=== PATIENT | male | born 1945 | race Caucasian/White ===

== ENCOUNTER 2016-07-04 08:59 | Emergency (ER) | payer OTHER, MEDICARE ==
[~2016-07-04] VITALS: Ht 167.6 cm; Wt 64.0 kg
[~2016-07-04 08:59] MED LIST: ASPIRIN 325MG325 MG PO; ASPIRIN 81MG TA81 MG PO; AZELASTINE137 MCG/Ac; BISOPROLOL 5MG T5 MG PO; CALCIUM ACETAT667 MG PO; CETIRIZINE HCL10 MG PO; DOCUSATE SODIU100 MG PO; DUONEB 3 MG/3 ML3 ML IH; FLUTICASONE 50M16 GM; IPRATROPIUM BROM3 M1 IH; LEADER NATUR1000 MCG PO; LEVAQUIN 750 M750 MG PO; LEVAQUIN500 MG PO; LEVOFLOXACIN 5500 MG PO; LISINOPRIL 20MG20 MG PO; LISINOPRIL40 MG PO; MIRALAX(PO17 GM/1 PA PO; MIRALAX17 GM/PACK PO; NICODERM C14 MG/24 H TD; NITROGLYCERIN0.4 M1 SL; PATANOL 5 ML5 ML OP; PLAVIX 75MG TAB75 MG PO; PREDNISONE 20MG20 MG PO; PROVENTIL0.09 MG/A1 IH; RANITIDINE HCL150 MG PO; REFRESH LIQUIGE15 ML OP; SERTRALINE 100100 MG PO; SIMVASTATIN5 MG PO; SPIRIVA HA1 PUFF/INH IH; SYMBICORT1 AE1 IH; TAMSULOSIN HYD0.4 MG PO; VIAGRA100 MG PO; VITAMIN B-121000 MCG PO; VITAMIN D3400 I1 PO; VITAMIN D400 IU PO; ZITHROMAX Z-PA250 M1 PO; ZYRTEC10 M3 PO; [UNRECOGNIZED DRUG - CODE] PO; [UNRECOGNIZED DRUG - OTHER] NS
[2016-07-04 09:51] LABS: LYMPH # 1.2 K/mm3 (0.7-4.5)
[2016-07-04 09:59] LABS: HEMOGLOBIN 13.8 g/dL (14.1-18.0)
[2016-07-04 10:18] LABS: BUN 14 mg/dL (7-18); GFR (ESTIMATED) 73 ML/MIN (>60)
--- NOTE | 2016-07-04 10:25 | Emergency Room Report ---
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 N Clinical Suspician of Infection? N Mental Status: 1 - Regular (Normal Baseline) Sepsis Risk:Low Sepsis Risk Have you (or family members/close friends) recently traveled outside the [place]? N If Yes, where/when: Have you had exposure to infectious disease within the past month? N TB? Other? Specify: Source patient, RN notes reviewed, family, RN/MD Exam Limitations no limitations Comment This is a 71-year-old male patient arriving to the emergency room by POV with complaints of RIGHT lower ribs pain, after a fall sustained yesterday afternoon. Patient is known with chronic emphysema, oxygen dependent at home, on 2 L/m. His shortness of breath, chronic in nature, does not appear to be any worse than usual. Patient denies any recent travel or exposure to sick contacts. ALLERGIES Coded Allergies: morphine (04/08/16) Home Medications Reported Medications BISOPROLOL FUMARATE (Bisoprolol 5MG) 5 MG PO DAILY Nitroglycerin 0.4 MG SL PRN PRN CHEST PAIN TAMSULOSIN HCL (Tamsulosin 0.4MG) 0.4 MG PO QHS ASPIRIN (Aspirin) 81 MG PO DAILY Simvastatin 5 MG PO QHS CLOPIDOGREL BISULFATE (PLAVIX) 75 MG PO DAILY BUDESONIDE/FORMOTEROL FUMARATE (Symbicort 160-4.5 Mcg Inhaler) 2 PUFF IH BID Docusate Sodium 200 MG PO PRN DAILY CYANOCOBALAMIN (VITAMIN B-12) (Vitamin B-12) 1,000 MCG PO DAILY ALBUTEROL-IPRATROPIUM (Iprat-Albut 0.5-3(2.5) MG/3 Ml) 3 ML IH Q6H POLYETHYLENE GLYCOL (Miralax) 17 GM PO DAILY AZELASTINE HCL (Azelastine HCl) 137 MCG NA BID FLUTICASONE PROPIONATE (Fluticasone 50MCG Nasal [place]) 1 SPRAY NA DAILY Sodium Chloride/Sodium Bicarb (Sinuflo Readyrinse Nasal Kit) 1 EACH NS PRN PRN SINUSES ALBUTEROL (Proventil Hfa Inhaler) 2 PUFF IH Q4H PRN History Medical History General CAD? Yes Angina: No [place]: Yes Hypertension? Yes Hyperlipidemia? No CHF? No DVT? No PE? No COPD? Yes Asthma? Yes Anemia? No GERD? No Gastric ulcers? No GI Bleed? No Hernia? Yes Thyroid Problems? No Hypothyroidism? No CVA? No Seizures? Yes Diabetes? No Renal Insuffiency? No End Stage Renal Disease? No UTI? No Stones? No BPH? No GB Disease: No Nephritic Syndrome? No Asplenia? No Hepatitis? No Sickle Cell Disease? No Arthritis? No Migraines? No Cataracts? No Glaucoma? No MRSA? No HIV? No TB? No Anxiety? No Depression? No Cancer? Yes Site: LUNG Immunization Hx DT/Tetanus > 10 Years Ago Flu 2015-17FSN Pneumonia Refuses Surgical Hx Previous Surgery?Y Appendix Colon GI(other) CHEST Card-other AAA STENT PLACEMENT Family History Family Hx Diabetes Yes CAD Yes Hypertension Yes Hyperlipidemia Yes Cancer No TB Yes Social History Smoking Hx Smoker: Current Every Day Smoker Tobacco: Yes Type Cigarettes Packs/day < 1 Pack Are you/the child exposed to second-hand smoke: Yes Alcohol Alcohol: No Review of Systems All Other Systems Reviewed and Negative Cardiovascular chest pain Physical Exam Vital Signs Vital Signs Date Time Temp Pulse Resp B/P Pulse O2 O2 Flow FiO2 Ox Delivery Rate 07/04 1035 98.4 71 28 108/60 95 3 07/04 1020 99.0 76 26 111/59 95 07/04 0905 98.7 89 26 102/60 95 3 General Appearance normal appearance, WD/WN, no apparent distress Neck normal inspection, non-tender, supple, full range of motion Respiratory Status Yes: trachea midline, chest symmetrical, tender on palpation (rigth lower ribs). No: respiratory distress. Lung Sounds anterior: wheezing. posterior: wheezing. bilateral: wheezing. left: wheezing. right: wheezing. 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 No Comment Advised patient that his chest x-ray does not reflect any rib fractures, pneumothorax, pneumonia as patient's suspected. Instructed patient to follow-up with Dr. Poon's office tomorrow morning, if no better. Results/Orders Laboratory Tests 07/04/16 0940: Sodium 139, Potassium 3.8, Chloride 103, Carbon Dioxide 31, BUN 14, Creatinine 1.0, Estimated Creat Clear 60, Estimated GFR (MDRD) 73, Glucose 94, Calcium 8.6, Total Bilirubin 1.1 H, AST 14 L, ALT 15, Alkaline Phosphatase 61, Creatine Kinase 41, CK-MB (CK-2) Rel Index 1.5, CK and CKMB Interp 0.6, Troponin I < 0.02 , Total Protein 6.8, Albumin 3.0 L, Globulin 3.8 H, Albumin/Globulin Ratio 0.8 L, WBC 10.6, RBC 4.22 L, Hgb 13.8 L, Hct 40.6 L, MCV 96.0, RDW 14.1, Plt Count 170, MPV 9.1, Gran % 78.1, Gran # 8.3 H, Lymphocytes % 11.0, Monocytes % 8.5, Eosinophils % 1.8, Basophils % 0.7, Lymphocytes # 1.2, Monocytes # 0.9, Eosinophils # 0.2, Basophils # 0.1, PUBS MCHC 33.9, MCH 32.5 H Orders Procedure Date/time Status RT Aerosol Treatment, Provide 07/04 1014 Active RT REQUEST DUONEB 07/04 0915 Active CBC WITH AUTO DIFF 07/04 913 Complete CARDIAC ENZYMES 07/04 913 Complete CHEM 12 PROFILE 07/04 913 Complete CM/EKG 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 of ischemic chgs, no ectopy, normal QRS, normal SC, no EKG for comparison, non-spec. ST/Twave chgs, ST elevation, ST depression, LBBB, RBBB, ectopy, abnormal Q waves XRAY/CT/US XRAY/CT/US XRAY chest XR interpretation by discussed w/radiologist Xray Results no infiltrates, normal heart size, see radiologist's report Departure Departure Time of Disposition 1022 Disposition DC Home or Self Care(routine) Clinical Impression Primary Impression: Chest wall contusion Qualifiers: Encounter type: initial encounter Laterality: right Qualified Code: S20.211A - Contusion of right front wall of thorax, initial encounter Condition STABLE Referrals Alice BENAVIDES,Julian Blakely (Family): Today after leaving ER Patient Instructions DI for Rib Contusion Additional Instructions Please follow-up with Dr. Jenkins as instructed. Use the incentive spirometer, already available at home, per previous instructions. Discharge Counseling Counseled pt/family regarding diagnosis, test results, medications/RX, home care, follow up needs Comment Please follow-up with Dr. Jenkins as instructed. Use the incentive spirometer, already available at home, per previous instructions. ED Critical Care Critical Care No at 1805
--- NOTE | 2016-07-04 10:30 | RADIOLOGY REPORT PS360 ---
[id number] VIEWS ORDERING PHYSICIAN : Juan R Valdivia MD PATIENT AGE: 71 years GENDER: Male INDICATION: pain right ribs patient fell yesterday morning and hit front of his chest on image of 70, encounter. Supplied history as well as the order states right ribs pain. ER doctor stated left rib pain TECHNIQUE: AP chest above and below diaphragm along with both oblique views RIGHT RIBS (with oblique views left ribs e included on these images) COMPARISON: PCXR 06/15/2016 and 05/19/2016 PA and lateral chest\ FINDINGS Right ribs intact with no good evidence of fracture on these plain films. If significant chest pain persist consider follow-up or further investigation with other modalities. The frontal view of the chest demonstrates shows a stable appearance to the chest versus 06/15/2016 and 05/19/2016 CXR. Again noted hyperexpansion at the upper lung campos with coarsened markings towards the lung bases bilaterally at infrahilar regions left greater the right reflecting mild chronic changes. This same Similar appearance the lung campos also seen on a PA and lateral chest from December 20, 2013 No pneumothorax. Blunting right CP angle long-standing reflection of chronic pleural changes. Heart normal size. Iliana and mediastinal structures stable. Calcified aortic knob. Postsurgical changes upper abdomen . Results communicated to the ER physician. IMPRESSION: Right ribs intact no fracture evident COPD/hyperexpansion with Chronic lung changes. Nothing definitely acute
[2016-07-04 10:35] VITALS: BP 108/60
[2016-07-17] MEDS ORDERED: BACTROBAN2% TP (11:56)
[2016-08-25] MEDS ORDERED: AUGMENTIN1 TA1 PO (07:32)
== END 2016-07-04 10:35 ==
LOC: ER 08:59
PROVIDERS: Emergency Medicine
DX: S20.211A Contusion of right front wall of thorax, initial encounter (principal); Z72.0 Tobacco use; J44.9 Chronic obstructive pulmonary disease, unspecified; I10 Essential (primary) hypertension; I25.10 Atherosclerotic heart disease of native coronary artery without angina pectoris; W01.0XXA Fall on same level from slipping, tripping and stumbling without subsequent striking against object, initial encounter; Y92.009 Unspecified place in unspecified non-institutional (private) residence as the place of occurrence of the external cause

== ENCOUNTER 2016-07-05 07:37 | Inpatient (IN) | payer MEDICARE, OTHER ==
[~2016-07-05] VITALS: Ht 167.6 cm; Wt 63.7 kg
[2016-07-05] VITALS (7 sets, daily range): BP systolic 111–130; BP diastolic 66–85
[2016-07-05 07:54] LABS: LYMPH # 0.7 K/mm3 (0.7-4.5); LYMPH % 7.1 % (10-50)
--- NOTE | 2016-07-05 08:12 | RADIOLOGY REPORT PS360 ---
CHEST-PORTABLE HISTORY: SOA COMPARISON: 06/15/2016 FINDINGS: The cardiomediastinal silhouette and pulmonary vascularity are within normal limits. COPD with hyperinflation and attenuation of the upper lobe pulmonary vessels once again noted. There are increased markings in the lower lobes which may be due to peribronchial inflammatory change. No obvious lobar consolidation. No acute bony anomalies. IMPRESSION: COPD with peribronchial inflammatory changes in the lung bases
[2016-07-05 08:18] LABS: BUN 12 mg/dL (7-18)
[2016-07-05 08:20] LABS: GFR (ESTIMATED) 95 ML/MIN (>60)
--- NOTE | 2016-07-05 08:36 | Emergency Room Report ---
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 N Clinical Suspician of Infection? N Mental Status: 1 - Regular (Normal Baseline) Sepsis Risk:Low Sepsis Risk Have you (or family members/close friends) recently traveled outside the [place]? N If Yes, where/when: Have you had exposure to infectious disease within the past month? N TB? Other? Specify: Source patient, RN notes reviewed, family, RN/MD Exam Limitations no limitations Comment This is 71-year-old male patient that was seen in this emergency room yesterday for similar complaints. He is here today with 2 complaints: shortness of breath and chest pain. Patient is known with emphysema, oxygen dependent. He continues to smoke about 3 packs of cigarettes a day. said that he had an episode of chest around 2:00 AM after which she couldn't sleep all night long. ALLERGIES Coded Allergies: morphine (04/08/16) Home Medications Reported Medications BISOPROLOL FUMARATE (Bisoprolol 5MG) 5 MG PO DAILY Nitroglycerin 0.4 MG SL PRN PRN CHEST PAIN TAMSULOSIN HCL (Tamsulosin 0.4MG) 0.4 MG PO QHS ASPIRIN (Aspirin) 81 MG PO DAILY Simvastatin 5 MG PO QHS CLOPIDOGREL BISULFATE (PLAVIX) 75 MG PO DAILY BUDESONIDE/FORMOTEROL FUMARATE (Symbicort 160-4.5 Mcg Inhaler) 2 PUFF IH BID Docusate Sodium 200 MG PO PRN DAILY CYANOCOBALAMIN (VITAMIN B-12) (Vitamin B-12) 1,000 MCG PO DAILY ALBUTEROL-IPRATROPIUM (Iprat-Albut 0.5-3(2.5) MG/3 Ml) 3 ML IH Q6H POLYETHYLENE GLYCOL (Miralax) 17 GM PO DAILY AZELASTINE HCL (Azelastine HCl) 137 MCG NA BID FLUTICASONE PROPIONATE (Fluticasone 50MCG Nasal [place]) 1 SPRAY NA DAILY Sodium Chloride/Sodium Bicarb (Sinuflo Readyrinse Nasal Kit) 1 EACH NS PRN PRN SINUSES ALBUTEROL (Proventil Hfa Inhaler) 2 PUFF IH Q4H PRN History Medical History General CAD? Yes Angina: No [place]: Yes Hypertension? Yes Hyperlipidemia? No CHF? No DVT? No PE? No COPD? Yes Asthma? Yes Anemia? No GERD? No Gastric ulcers? No GI Bleed? No Hernia? Yes Thyroid Problems? No Hypothyroidism? No CVA? No Seizures? Yes Diabetes? No Renal Insuffiency? No End Stage Renal Disease? No UTI? No Stones? No BPH? No GB Disease: No Nephritic Syndrome? No Asplenia? No Hepatitis? No Sickle Cell Disease? No Arthritis? No Migraines? No Cataracts? No Glaucoma? No MRSA? No HIV? No TB? No Anxiety? No Depression? No Cancer? Yes Site: LUNG Immunization Hx DT/Tetanus > 10 Years Ago Flu 2015-FSN Pneumonia Refuses Surgical Hx Previous Surgery?Y Appendix Colon GI(other) CHEST Card-other AAA STENT PLACEMENT Family History Family Hx Diabetes Yes CAD Yes Hypertension Yes Hyperlipidemia Yes Cancer No TB Yes Social History Smoking Hx Smoker: Current Every Day Smoker Tobacco: Yes Type Cigarettes Packs/day < 1 Pack Alcohol Alcohol: No Review of Systems All Other Systems Reviewed and Negative Respiratory shortness of breath Cardiovascular chest pain Physical Exam Vital Signs Vital Signs Date Time Temp Pulse Resp B/P Pulse O2 O2 Flow FiO2 Ox Delivery Rate 07/05 1240 98.2 110 18 123/66 97 OXYGEN 07/05 1105 77 07/05 1105 3 07/05 1105 98.2 110 18 123/66 07/05 1105 97 OXYGEN 07/05 1012 3 07/05 1000 3.5 07/05 0947 98.2 77 18 111/66 97 OXYGEN 3 07/05 0939 16 96 3 07/05 0937 97.9 82 16 122/60 96 07/05 0858 82 16 122/60 96 07/05 0815 89 20 97/59 96 3 07/05 0739 97.9 86 20 112/77 96 3 General Appearance normal appearance, WD/WN, no apparent distress Respiratory Status Yes: trachea midline, chest symmetrical, non tender chest. No: respiratory distress. Lung Sounds anterior: wheezing. posterior: wheezing. bilateral: wheezing. left: wheezing. right: wheezing. 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 No Comment 09:00am-case discussed with Dr. Jenkins who recommended admission to observation/ telemetry. Results/Orders Laboratory Tests 07/05/16 0840: ABG pH 7.39, ABG pCO2 (Temp Corrct 46.0 H, ABG pO2 (Temp Correct 55.0 L, ABG HCO3 28.0 H, ABG Total CO2 29.0 H, ABG O2 Sat (Calculated) 90, ABG Base Excess 2.7 H, Bin Test ACCEPTABLE, Blood Gas Comments RIGHT RADIAL 07/05/16 0755: Lactic Acid 0.8 07/05/16 0730: Sodium 139, Potassium 4.1, Chloride 102, Carbon Dioxide 32, BUN 12, Creatinine 0.8, Estimated Creat Clear 74, Estimated GFR (MDRD) 95, Glucose 101, Calcium 8.0 L, Total Bilirubin 0.6, AST 14 L, ALT 15, Alkaline Phosphatase 61, Creatine Kinase 56, CK-MB (CK-2) Rel Index 4.1 H, CK and CKMB Interp 2.3, Troponin I < 0.02, Total Protein 6.5, Albumin 2.9 L, Globulin 3.6 H, Albumin/Globulin Ratio 0.8 L, WBC 10.3, RBC 4.11 L, Hgb 13.0 L, Hct 39.8 L, MCV 96.7, RDW 14.0, Plt Count 151, MPV 9.4, Gran % 82.8 H, Gran # 8.6 H, Lymphocytes % 7.1 L, Monocytes % 8.0, Eosinophils % 2.0, Basophils % 0.2, Lymphocytes # 0.7, Monocytes # 0.8, Eosinophils # 0.2, Basophils # 0.0, PUBS MCHC 32.6, MCH 31.6 H Current Medication Orders Sig/Letty Start time Last Medication Dose Route Stop Time Status Admin Aspirin 81 MG DAILY 07/06 09 AC PO Bisoprolol Fumarate 5 MG DAILY 07/06 09 AC PO Clopidogrel Bisulfate 75 MG DAILY 07/06 09 AC PO Levofloxacin/Dextrose 100 ML DAILY 07/06 0900 AC IV Polyethylene Glycol 17 GM DAILY 07/06 0900 AC PO Pravastatin Sodium 10 MG QHS 07/05 2100 AC PO Tamsulosin HCl 0.4 MG QHS 07/05 2100 AC PO Methylprednisolone 60 MG Q8 07/05 1300 AC 07/05 Sodium Succinate IV 1414 Acetaminophen 0 .STK-MED ONE 07/05 1202 DC PO Albuterol/Ipratropium 3 ML Q6H6 07/05 1200 AC 07/05 INH 1717 Sodium Chloride 10 ML PRN PRN 07/05 1015 AC IV Levofloxacin/Dextrose 100 ML .STK-MED ONE 07/05 0920 DC IV Acetaminophen 650 MG Q4HP PRN 07/05 0915 AC 07/05 PO 1203 Nicotine 21 MG DAILYP PRN 07/05 0915 AC TD Ondansetron HCl 4 MG Q6HP PRN 07/05 0915 AC IV Sodium Chloride 1,000 ML .Q20H 07/05 0915 AC 07/05 IV 1428 Levofloxacin/Dextrose 100 ML ONCE ONE 07/05 0900 DCr 07/05 IV 07/05 0959 0925 Methylprednisolone 125 MG ONCE ONE 07/05 0900 DC 07/05 Sodium Succinate IV 07/05 0901 0925 Sodium Chloride 10 ML PRN PRN 07/05 0745 AC IV 07/06 0744 Orders Procedure Date/time Status CBC WITH AUTO DIFF 07/06 599 Active BASIC METABOLIC PROFILE 07/06 06 Active DIET-REGULAR ( TOLERATED) 07/05 B Active CULTURE, SPUTUM 07/05 1200 Active RT Pulse Oximetry, Provide 07/05 09 Active RT O2 Therapy, Monitor/[place] 07/05 936 Active RT Aerosol Treatment, Provide 07/05 936 Active RT Aerosol Treatment, Provide 07/05 936 Active Decision to admit 07/05 902 Active ARTERIAL BLOOD GAS REQUEST 07/05 08 Active ELECTROCARDIOGRAM REQUEST 07/05 0746 Active IV SALINE LOCK 07/05 745 Active CULTURE, BLOOD 07/05 0646 Active LACTIC ACID 07/05 745 Complete CBC WITH AUTO DIFF 07/05 0746 Complete CARDIAC ENZYMES 07/05 0746 Complete CHEM 12 PROFILE 07/05 0746 Complete ADMIT PATIENT 07/05 UNK Active 12 LEAD EKG-MENG (INITIAL) 07/05 UNK Active ELECTROCARDIOGRAM REQUEST 07/05 UNK Active OXYGEN REQUEST 07/05 UNK Active RT REQUEST DUONEB 07/05 UNK Active VITAL SIGNS 07/05 UNK Active POM NURSE CHRISTOPHER BAIN ORDER 07/05 UNK Active RECORD I & O 07/05 UNK Active CODE STATUS 07/05 UNK Active PATIENT ACTIVITY ORDER 07/05 UNK Active 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 of ischemic chgs, no ectopy, normal QRS, normal ID, normal EKG, no EKG for comparison, non-spec. ST/Twave chgs, ST elevation, ST depression, LBBB, RBBB, ectopy, abnormal Q waves XRAY/CT/US XRAY/CT/US XRAY chest XR interpretation by discussed w/radiologist Xray Results no infiltrates, normal heart size, see radiologist's report Departure Departure Time of Disposition 09 Disposition Still a Patient Clinical Impression Primary Impression: Chest pain Qualifiers: Chest pain type: unspecified Qualified Code: R07.9 - Chest pain, unspecified Secondary Impressions: Acute bronchitis Qualifiers: Bronchitis organism: unspecified organism Qualified Code: J20.9 - Acute bronchitis, unspecified COPD exacerbation Condition STABLE Referrals Alice BENAVIDES,Julian Blakely (Family) ED Critical Care Critical Care No at 1802
[2016-07-05 08:48] LABS: ALLEN'S TEST ACCEPTABLE; ARTERIAL ABE 2.7 MMOL/L (-2.4-+2.3); OXYGEN 42
--- NOTE | 2016-07-05 09:13 | HISTORY AND PHYSICAL REPORT ---
Demographics: Admit date: 07/05/16 Chief complaint: sob PRIMARY DIAGNOSIS: sob Allergies: Coded Allergies: morphine (04/08/16) Comment: progressive sob through night History of present illness: History of present illness: this wm was seen in the [facility] ed yesterday and today with progressive sob not responding to op rx - he has hx of copd and 02 dep and recent rib contusion - pt has prod cough yellow sputum and has inc 02 requirement -pt with no specific chest pain but feels tired at this time - he does continue to smoke Past medical history: Family HX Family Hx Insignificant Yes Immunization HX DT/Tetanus > 10 Years Ago Flu 2015-FSN Pneumonia Refuses General CAD? Yes Angina: No [place]: Yes Hypertension? Yes Hyperlipidemia? No CHF? No DVT? No PE? No COPD? Yes Asthma? Yes Anemia? No GERD? No Gastric ulcers? No GI Bleed? No Hernia? Yes Thyroid Problems? No Hypothyroidism? No CVA? No Seizures? Yes Diabetes? No Renal Insuffiency? No UTI? No Stones? No BPH? No GB Disease: No Nephritic Syndrome? No Asplenia? No Hepatitis? No Sickle Cell Disease? No Arthritis? No Migraines? No Cataracts? No Glaucoma? No MRSA? No HIV? No TB? No Anxiety? No Depression? No Cancer? Yes Site: LUNG Past Surgical HX Previous Surgery?Y Appendix Colon GI(other) CHEST Card-other AAA STENT PLACEMENT Current home meds: Reported Medications Sildenafil Citrate (Viagra) 50 MG PO PRN PRN ERECTILE DYSFUNCTION BISOPROLOL FUMARATE (Bisoprolol 5MG) 5 MG PO DAILY Nitroglycerin 0.4 MG SL PRN PRN CHEST PAIN TAMSULOSIN HCL (Tamsulosin 0.4MG) 0.4 MG PO QHS ASPIRIN (Aspirin) 81 MG PO DAILY Simvastatin 5 MG PO QHS CLOPIDOGREL BISULFATE (PLAVIX) 75 MG PO DAILY BUDESONIDE/FORMOTEROL FUMARATE (Symbicort 160-4.5 Mcg Inhaler) 2 PUFF IH BID Docusate Sodium 200 MG PO PRN DAILY CYANOCOBALAMIN (VITAMIN B-12) (Vitamin B-12) 1,000 MCG PO DAILY ALBUTEROL-IPRATROPIUM (Iprat-Albut 0.5-3(2.5) MG/3 Ml) 3 ML IH Q6H POLYETHYLENE GLYCOL (Miralax) 17 GM PO DAILY AZELASTINE HCL (Azelastine HCl) 137 MCG NA BID FLUTICASONE PROPIONATE (Fluticasone 50MCG Nasal [place]) 1 SPRAY NA DAILY Sodium Chloride/Sodium Bicarb (Sinuflo Readyrinse Nasal Kit) 1 EACH NS PRN PRN SINUSES ALBUTEROL (Proventil Hfa Inhaler) 2 PUFF IH Q4H PRN Social Hx: Smoking HX Tobacco Yes Type Cigarettes Packs/day < 1 PACK Alcohol Alcohol: No Hx of Drug Use Drug Use? No Patien't marital status is Patient's support system is excellent Review of systems: Constitutional see HPI, weakness. No: fever. Eyes No: drainage. Ears, Nose, Mouth, Throat No ear pain, No epistaxis, No throat pain Respiratory see HPI, cough, shortness of breath, wheezing. Cardiovascular No chest pain, No palpitations, No syncope Gastrointestinal/Abdominal No nausea, poor appetite, poor fluid intake, No vomiting Genitourinary No: dysuria, frequency, hesitancy, hematuria. Musculoskeletal No: back pain, joint pain, joint swelling, neck pain. Skin No: rash. Neurological No: headache, seizure disorder. Psychiatric No: depressed. Exam: Lab data for last 24 hours: Laboratory Tests 07/05/16 0840: ABG pH 7.39, ABG pCO2 (Temp Corrct 46.0 H, ABG pO2 (Temp Correct 55.0 L, ABG HCO3 28.0 H, ABG Total CO2 29.0 H, ABG O2 Sat (Calculated) 90, ABG Base Excess 2.7 H, Bin Test ACCEPTABLE, Blood Gas Comments RIGHT RADIAL 07/05/16 0755: Lactic Acid 0.8 07/05/16 0730: Sodium 139, Potassium 4.1, Chloride 102, Carbon Dioxide 32, BUN 12, Creatinine 0.8, Estimated Creat Clear 74, Estimated GFR (MDRD) 95, Glucose 101, Calcium 8.0 L, Total Bilirubin 0.6, AST 14 L, ALT 15, Alkaline Phosphatase 61, Creatine Kinase 56, CK-MB (CK-2) Rel Index 4.1 H, CK and CKMB Interp 2.3, Troponin I < 0.02, Total Protein 6.5, Albumin 2.9 L, Globulin 3.6 H, Albumin/Globulin Ratio 0.8 L, WBC 10.3, RBC 4.11 L, Hgb 13.0 L, Hct 39.8 L, MCV 96.7, RDW 14.0, Plt Count 151, MPV 9.4, Gran % 82.8 H, Gran # 8.6 H, Lymphocytes % 7.1 L, Monocytes % 8.0, Eosinophils % 2.0, Basophils % 0.2, Lymphocytes # 0.7, Monocytes # 0.8, Eosinophils # 0.2, Basophils # 0.0, PUBS MCHC 32.6, MCH 31.6 H Microbiology 07/05 754 BLOOD: Anaerobic Blood Culture - RECD 07/05 754 BLOOD: Aerobic Blood Culture - RECD 07/05 754 BLOOD: Anaerobic Blood Culture - RECD 07/05 754 BLOOD: Aerobic Blood Culture - RECD Admission vital signs: 1ST Vital Signs Result Date Time Pulse Ox 96 07/05 738 B/P 112/77 07/05 0639 O2 Flow Rate 3 07/05 738 Temp 97.9 07/05 0739 Pulse 86 07/05 0739 Resp 20 07/05 738 Exam General appearance: awake Eyes: PERRLA ENT: dry mucous membranes Neck: no JVD Cardiovascular: regular rate & rhythm, murmur Respiratory: diminished breath sounds, wheezing ABD: soft Genitourinary: no hematuria Extremities: moves all Musculoskeletal: equal muscle strength Skin: dry 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 COPD exacerbation Status Acute 2. Tobacco use Status Chronic 3. Bronchitis Status Acute Plan: will admit with orders as he has failed op rx at 0913
--- NOTE | 2016-07-05 15:57 | PHARMACY CLINIC NOTE ---
Patient Demographics Patient Demographics Admission date: 07/05/16 Date: 07/05/16 Time: 1557 Allergies Coded Allergies: morphine (04/08/16) HEIGHT- FT: 5 IN: 6.00 K.702 VTE General Information Labs: Laboratory Tests 07/05 07 Hematology Hgb (14.1 - 18.0 g/dL) 13.0 L Hct (42.0 - 52.0 %) 39.8 L Plt Count (142 - 424 K/mm3) 151 Disclaimer The following section includes nursing documentation that has been pulled in for pharmacy review. Patient's VTE score: 5 Patient's VTE Risk: LOW RISK Clinical trial participant? No VTE prophylaxis NQF [id number] VTE prophylaxis ordered? Yes Type of prophylaxis/treatment: CHRISTOPHER at 9939
[2016-07-06 03:58] VITALS: BP 149/85
[2016-07-06 07:06] LABS: HEMOGLOBIN 13.3 g/dL (14.1-18.0); LYMPH # 0.3 K/mm3 (0.7-4.5); LYMPH % 1.8 % (10-50)
--- NOTE | 2016-07-06 07:34 | ACUTE CARE PROGRESS NOTE (QUA) ---
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 COPD exacerbation Status: Acute 2. Tobacco use Status: Chronic 3. Bronchitis Status: Acute Patient condition Stable Plan: order additional tests This inpt stay is expected to cross 2 MNs from start of care Yes Comments: will do pt/ot eval and will ask pul to see pt at 0738
--- NOTE | 2016-07-06 07:34 | ACUTE CARE PROGRESS NOTE (QUA) ---
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 COPD exacerbation Status: Acute 2. Tobacco use Status: Chronic 3. Bronchitis Status: Acute Patient condition Stable Plan: order additional tests This inpt stay is expected to cross 2 MNs from start of care Yes Comments: will do pt/ot eval and will ask pul to see pt at 0794
[2016-07-06 08:30] VITALS: BP 156/90
[2016-07-06 09:09] LABS: NEUTROPHILS 94 % (42-76)
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
[2016-07-06 15:57] VITALS: BP 115/65
[2016-07-06 19:43] VITALS: BP 122/67
[2016-07-06 20:13] LABS: ARTERIAL ABE 2.5 MMOL/L (-2.4-+2.3); ARTERIAL PO2 82.6 MMHG (80-100); ARTERIAL TCO2 28.3 MMOL/L (23-27)
[2016-07-06 20:14] LABS: ALLEN'S TEST ACCEPTABLE
[2016-07-06 22:37] VITALS: BP 122/67
[2016-07-07 00:05] VITALS: BP 122/72
[2016-07-07 04:00] VITALS: BP 126/68
[2016-07-07 07:48] VITALS: BP 136/94
[2016-07-07 09:00] VITALS: BP 136/94
--- NOTE | 2016-07-07 09:18 | ACUTE CARE PROGRESS NOTE (QUA) ---
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 COPD exacerbation Status: Acute 2. Tobacco use Status: Chronic 3. Bronchitis Status: Acute Patient condition Stable Plan: continue current care This inpt stay is expected to cross 2 MNs from start of care Yes Comments: slow but steady improvement Antibiotic Stewardship (2) Current Culture Results Microbiology 07/05 0755 BLOOD: Anaerobic Blood Culture - RECD 07/05 0755 BLOOD: Aerobic Blood Culture - RECD 07/05 UNK SPUTUM: Sputum Culture - COMP 07/05 UNK SPUTUM: Gram Stain - COMP Infxn that will respond? Yes Right drug,dose,and route? Yes More targeted antbx? No How long atbx needed? 5 Comment: will need to be oob and therapy at 0917
[2016-07-07 15:41] VITALS: BP 123/76
[2016-07-07 21:45] VITALS: BP 123/76
[2016-07-08 04:00] VITALS: BP 145/62
--- NOTE | 2016-07-08 08:26 | ACUTE CARE PROGRESS NOTE (QUA) ---
See Addendum Progress Notes Subjective Date 07/08/16 Time 0823 Patient/family reports: feeling better, shortness of breath Nursing reports: alert, shortness of breath Objective Findings Vital Signs Date Time Temp Pulse Resp B/P Pulse O2 O2 Flow FiO2 Ox Delivery Rate 07/08 0642 3 07/08 0616 3 07/08 0616 99 OXYGEN 3 07/08 0533 3 07/08 0400 98.1 57 20 145/62 99 OXYGEN 07/08 0305 3 07/08 0200 30 07/08 0055 3 07/07 2332 3 07/07 2211 3 07/07 2145 97.7 94 20 123/76 95 3 07/07 1700 3 07/07 1541 3 07/07 1541 97.7 94 20 123/76 95 OXYGEN 3 07/07 1410 3 07/07 1300 3 07/07 1129 3 07/07 0954 3 07/07 0900 3 07/07 0900 97.1 84 22 136/94 96 3 Current Medications Fluticasone Propionate 2 SPR DAILY NA Acetaminophen 0 .STK-MED ONE PO (DC) Bisoprolol Fumarate 0 .STK-MED ONE PO (DC) Azelastine HCl 1 MCG BID NA Albuterol 2.5 MG Q2HP PRN INH Albuterol 0 .STK-MED ONE INH (DC) Sodium Chloride 1 SPRAY EACH NOSTRIL Q2HP PRN NA Sodium Chloride 0 .STK-MED ONE .ROUTE (DC) Polyethylene Glycol 0 .STK-MED ONE .ROUTE (DC) Bisacodyl 5 MG BIDP PRN PO Azithromycin 500 MG DAILY IV Sodium Chloride 250 ML Aspirin 81 MG DAILY PO Bisoprolol Fumarate 5 MG DAILY PO Clopidogrel Bisulfate 75 MG DAILY PO Polyethylene Glycol 17 GM DAILY PO Sodium Chloride 2 ML PRN PRN IV Pravastatin Sodium 10 MG QHS PO Tamsulosin HCl 0.4 MG QHS PO Methylprednisolone Sodium Succinate 60 MG Q8 IV Albuterol/Ipratropium 3 ML Q6H6 INH Sodium Chloride 10 ML PRN PRN IV Acetaminophen 650 MG Q4HP PRN PO Nicotine 21 MG DAILYP PRN TD Ondansetron HCl 4 MG Q6HP PRN IV Last VS-Temp:98.1 B/P:145/62 Pulse:57 Resp:20 SaO2:99 OXYGEN Last weight lbs:140 oz:7 K.702 Method:Bed Scales Exam General appearance: normal appearance, alert, active, awake, no acute distress Eyes: normal exam ENT: normal exam Neck: normal inspection, no carotid bruit, full range of motion Cardiovascular: normal exam, regular rate & rhythm Respiratory: on oxygen, wheezing, accessory muscle use ABD: normal exam, non-distended, normal bowel sounds, no rebound, soft Genitourinary: normal voiding & quantity Extremities: normal exam, moves all, warm Musculoskeletal: normal exam Skin: normal exam, intact, warm Neuro: normal exam, alert, intact, no deficit, oriented Reviewed: allergies, medications, vital signs, lab results, radiology report, consult note Assessment/Plan Problem List 1. COPD exacerbation Status: Acute 2. Tobacco use Status: Chronic 3. Bronchitis Status: Acute 4. Hx of coronary artery disease Status: Chronic 5. Recent myocardial infarction 6. H/O heart artery stent 7. Dyspnea 8. SOB (shortness of breath) Status: Acute Patient condition Stable Plan: continue current care, HOSPICE CONSULT This inpt stay is expected to cross 2 MNs from start of care Yes Comments: PT HAS ASKED FOR HOSPICE CONSULT Antibiotic Stewardship (2) Current Culture Results Microbiology 07/05 0755 BLOOD: Anaerobic Blood Culture - RES 07/05 0755 BLOOD: Aerobic Blood Culture - RES 07/05 UNK SPUTUM: Sputum Culture - COMP 07/05 UNK SPUTUM: Gram Stain - COMP Infxn that will respond? Yes Right drug,dose,and route? Yes More targeted antbx? No at 0862
[2016-07-08 08:32] VITALS: BP 129/73
[2016-07-08 15:48] VITALS: BP 133/72
[2016-07-08 19:44] VITALS: BP 122/78
[2016-07-09 03:50] VITALS: BP 122/70
[2016-07-09 06:18] LABS: LYMPH # 0.8 K/mm3 (0.7-4.5); LYMPH % 12.7 % (10-50)
[2016-07-09 08:00] VITALS: BP 129/69
[2016-07-09] MEDS ORDERED: ZITHROMAX Z PA250 MG PO (08:36)
[2016-07-09] MEDS ORDERED: ALBUTEROL2.5 MG/NEB INH (08:36)
[2016-07-09] MEDS ORDERED: ACETAMINOPHEN325 M2 PO (08:36)
[2016-07-09] MEDS ORDERED: PREDNISONE 20MG20 MG PO (08:36)
[2016-07-09] MEDS ORDERED: HABITROL21 MG/24 H TD (08:36)
--- NOTE | 2016-07-09 08:49 | ACUTE CARE PROGRESS NOTE (QUA) ---
Progress Notes Subjective Date 07/09/16 Time 0846 Patient/family reports: feeling better, shortness of breath Nursing reports: alert, shortness of breath Objective Findings Laboratory Tests 07/09/16 0545: Sodium 143, Potassium 4.4, Chloride 104, Carbon Dioxide 40 H, BUN 18, Creatinine 0.7 L, Estimated Creat Clear 85, Estimated GFR (MDRD) 111, Glucose 121 H, Calcium 9.0, Total Bilirubin 0.3, AST 16, ALT 23, Alkaline Phosphatase 57, Total Protein 5.5 L, Albumin 2.4 L, Globulin 3.1, Albumin/Globulin Ratio 0.8 L, WBC 6.1, RBC 3.81 L, Hgb 12.0 L, Hct 37.7 L, MCV 98.7 H, RDW 14.2, Plt Count 198, MPV 9.2, Gran % 79.6, Gran # 4.8, Lymphocytes % 12.7, Monocytes % 7.2, Eosinophils % 0.2, Basophils % 0.3, Lymphocytes # 0.8, Monocytes # 0.4, Eosinophils # 0.0, Basophils # 0.0, PUBS MCHC 31.8, MCH 31.4 H Vital Signs Date Time Temp Pulse Resp B/P Pulse O2 O2 Flow FiO2 Ox Delivery Rate 07/09 0800 98.0 84 18 129/69 94 OXYGEN 07/09 0653 3 07/09 0637 3 07/09 0457 3 07/09 0350 97.9 63 18 122/70 97 OXYGEN 07/09 0307 3 07/09 0126 3 07/08 2317 3 07/08 2129 98.0 97 20 122/78 97 3 07/08 2120 3 07/08 1944 98.0 97 20 122/78 97 OXYGEN 07/08 1700 3 07/08 1700 3 07/08 1700 97 OXYGEN 3 07/08 1548 3 07/08 1548 97.9 99 20 133/72 97 OXYGEN 3 07/08 1353 3 07/08 1300 3 07/08 1233 3 07/08 0952 3 Current Medications Lorazepam 0.25 MG ONCE ONE IV (CKD) Albuterol 2 PUFFS Q4HP PRN IH (UNV) Miscellaneous 1 UNIT ONCE ONE XX (UNV) Acetaminophen 0 .STK-MED ONE PO (DC) Fluticasone Propionate 2 SPR DAILY NA Azelastine HCl 1 MCG BID NA Albuterol 2.5 MG Q2HP PRN INH Sodium Chloride 1 SPRAY EACH NOSTRIL Q2HP PRN NA Bisacodyl 5 MG BIDP PRN PO Azithromycin 500 MG DAILY IV Sodium Chloride 250 ML Aspirin 81 MG DAILY PO Bisoprolol Fumarate 5 MG DAILY PO Clopidogrel Bisulfate 75 MG DAILY PO Polyethylene Glycol 17 GM DAILY PO Sodium Chloride 2 ML PRN PRN IV Pravastatin Sodium 10 MG QHS PO Tamsulosin HCl 0.4 MG QHS PO Methylprednisolone Sodium Succinate 60 MG Q8 IV Albuterol/Ipratropium 3 ML Q6H6 INH Sodium Chloride 10 ML PRN PRN IV Acetaminophen 650 MG Q4HP PRN PO Nicotine 21 MG DAILYP PRN TD Ondansetron HCl 4 MG Q6HP PRN IV Last VS-Temp:98.0 B/P:129/69 Pulse:84 Resp:18 SaO2:94 OXYGEN Last weight lbs:140 oz:7 K.702 Method:Bed Scales Exam General appearance: normal appearance, alert, active, awake, no acute distress Eyes: normal exam ENT: normal exam Neck: normal inspection, full range of motion Cardiovascular: normal exam, regular rate & rhythm Respiratory: no respiratory distress, on oxygen, wheezing ABD: normal exam, non-distended, normal bowel sounds, no rebound, soft, no tenderness Genitourinary: normal voiding & quantity Extremities: normal exam, moves all Musculoskeletal: normal exam Skin: normal exam, normal color, warm Neuro: normal exam, alert, intact, oriented Reviewed: allergies, medications, vital signs, lab results Assessment/Plan Problem List 1. COPD exacerbation Status: Acute 2. Tobacco use Status: Chronic 3. Bronchitis Status: Acute 4. Hx of coronary artery disease Status: Chronic 5. Recent myocardial infarction 6. H/O heart artery stent 7. Dyspnea 8. SOB (shortness of breath) Status: Acute 9. History of COPD Status: Chronic 10. Acute bronchitis Qualifiers: Bronchitis organism: unspecified organism Qualified Code: J20.9 - Acute bronchitis, unspecified Patient condition Stable Plan: initiate discharge plan This inpt stay is expected to cross 2 MNs from start of care Yes Comments: DISCUSSED WITH ANASTACIA, WILL SEE PT TODAY AT [facility]. Antibiotic Stewardship (2) Infxn that will respond? Yes Right drug,dose,and route? Yes More targeted antbx? No at 0848
--- NOTE | 2016-07-09 08:50 | DISCHARGE SUMMARY STANDARD ---
Demographics Admit date: 07/05/16 Discharge date: 07/09/16 History of present illness History of present illness this wm was seen in the [facility] ed yesterday and today with progressive sob not responding to op rx - he has hx of copd and 02 dep and recent rib contusion - pt has prod cough yellow sputum and has inc 02 requirement -pt with no specific chest pain but feels tired at this time - he does continue to smoke Hospital Course Hospital Course: COPD- CONSULT VIVEROS, IV STEROIDS, ANTIBOTICS, BREATHING TREATMENT Discharge diagnoses Problem List 1. COPD exacerbation Status Acute 2. Tobacco use Status Chronic 3. Bronchitis Status Acute 4. Hx of coronary artery disease Status Chronic 5. Recent myocardial infarction 6. H/O heart artery stent 7. Dyspnea 8. SOB (shortness of breath) Status Acute 9. History of COPD Status Chronic 10. Acute bronchitis Medications Medications: Discharge meds are as noted. Follow up Follow up in office in: 1 DAY with: Angelito Calle at 0850
--- NOTE | 2016-07-09 08:50 | DISCHARGE SUMMARY STANDARD ---
Demographics Admit date: 07/05/16 Discharge date: 07/09/16 History of present illness History of present illness this wm was seen in the [facility] ed yesterday and today with progressive sob not responding to op rx - he has hx of copd and 02 dep and recent rib contusion - pt has prod cough yellow sputum and has inc 02 requirement -pt with no specific chest pain but feels tired at this time - he does continue to smoke Hospital Course Hospital Course: COPD- CONSULT VIVEROS, IV STEROIDS, ANTIBOTICS, BREATHING TREATMENT Discharge diagnoses Problem List 1. COPD exacerbation Status Acute 2. Tobacco use Status Chronic 3. Bronchitis Status Acute 4. Hx of coronary artery disease Status Chronic 5. Recent myocardial infarction 6. H/O heart artery stent 7. Dyspnea 8. SOB (shortness of breath) Status Acute 9. History of COPD Status Chronic 10. Acute bronchitis Medications Medications: Discharge meds are as noted. Follow up Follow up in office in: 1 DAY with: Angelito Calle at 0850
[2016-07-09 09:37] VITALS: BP 129/69
[2016-07-17] MEDS ORDERED: BACTROBAN2% TP (11:56)
[2016-08-25] MEDS ORDERED: AUGMENTIN1 TA1 PO (07:32)
== END 2016-07-09 09:35 | DRG 192 ==
LOC: ER 07:37 → 2ND 08:59
PROVIDERS: Emergency Medicine
DX: J44.1 Chronic obstructive pulmonary disease with (acute) exacerbation (principal); Z99.81 Dependence on supplemental oxygen; J20.9 Acute bronchitis, unspecified; J44.0 Chronic obstructive pulmonary disease with (acute) lower respiratory infection; Z72.0 Tobacco use; I25.10 Atherosclerotic heart disease of native coronary artery without angina pectoris; Z95.5 Presence of coronary angioplasty implant and graft; Z85.118 Personal history of other malignant neoplasm of bronchus and lung
CPT/HCPCS: G0378; J0456